=== PATIENT | female | born 1975 | race Two or more races ===

== ENCOUNTER 2025-03-09 08:04 | Emergency (ER) | payer MEDICAID, SELFPAY ==
[2025-03-09 08:05] VITALS: BMI 38.5
[2025-03-09 08:11] VITALS: BP 155/80; PULSE 67; RESP 18; TEMP 36.8; O2SAT 96
--- NOTE | 2025-03-09 08:17 | PD.EDRME ---
Rapid Medical Screening Exam [facility] Arrival date/time: 03/09/25 08:04 CC: Left upper and left lower abdominal pain HPI abrupt onset 1 hour ago no medications taken no prior history of similar events denies painful urination bloody urination or diarrhea. Mild nausea without vomiting. Patient has no PCP Chief Complaint: Abdominal Pain Time Seen by Provider: 03/09/25 08:13 Vital signs: Vital Signs Temperature 98.2 F 03/09/25 08:11 Pulse Rate 67 03/09/25 08:11 Respiratory Rate 18 03/09/25 08:11 Blood Pressure 155/80 H 03/09/25 08:11 Pulse Oximetry (%) 96 03/09/25 08:11 Oxygen Delivery Method Room Air 03/09/25 08:11
--- NOTE | 2025-03-09 08:52 | PD.EDADULT ---
ED General RME/HPI General Chief complaint: Abdominal Pain Stated complaint: LEFT ABD PAIN RADIATING TO BACK WITH NAUSEA Time Seen by Provider: 03/09/25 08:13 Arrival date/time: 03/09/25 08:04 RME / HPI RME / HPI narrative: 03/09/25 08:04 CC: Left upper and left lower abdominal pain HPI abrupt onset 1 hour ago no medications taken no prior history of similar events denies painful urination bloody urination or diarrhea. Mild nausea without vomiting. Patient has no PCP 49-year-old female with no relevant past medical history comes into the ED with chief complaints of abdominal pain greater on the left side than on the right side. Patient also says that she has been having some nausea, but has not had any vomiting. Patient states that around a week ago she has been having some nausea when she eats and has been taking Tums which relieved her nausea. She mentioned that she also has left lower back pain. Patient also mentioned that she has been having some diarrhea for the past few days around 5, but denies having any flank pain, fevers, shortness of breath, chest pain, blood in the urine, or blood in the stools. She did mention that today she did have some chills. Otherwise no other complaints at this time. Patient has never had a colonoscopy. Denies any smoking, drugs, social alcohol Related Data Previous Rx's ?Medication ?Instructions ?Recorded ipratropium bromide 21 mcg (0.03 2 spray intranasal BID #30 mL 02/25/19 %) nasal spray loratadine 10 mg tablet (Allergy 10 mg PO QDAY allergy symptoms #30 02/25/19 Relief (loratadine)) tabs ketorolac 10 mg tablet 10 mg PO Q8H PRN pain #9 tabs 03/09/25 Allergies Allergy/AdvReac Type Severity Reaction Status Date / Time No Known Allergies Allergy Verified 03/09/25 08:05 Review of Systems Review of Systems Systems Reviewed: All systems reviewed, normal except as documented Past Medical History Past Medical History Comments PMH COMMENT: PMH: None Allergies: NKDA Meds: None Social Hx: Denies any smoking or drugs, social drinking ED Exam Narrative Physical exam: Gen: A&O X 3, NAD HEENT: NCAT, EOMI, Pupils reactive [place], not icteric. External ears normal. No rhinorrhea. Moist mucous membranes. Neck: Supple, full range of motion, no observable masses, No meningeal sign. Lungs: No Respiratory distress, clear bilateral. CV: RRR, no murmurs. Abdomen: Soft, nondistended, mildly tender to palpation on L side, No rebound tenderness. No flank pain. MSK: No joint swelling, no redness, peripheral pulses presents, lumbar with no edema. Skin: No rashes, petechiae, lesions. Neuro: No focal neurological deficits appreciated, sensory and motor intact. Psych: Cooperative, appropriate mood and effect. Course Quality Measures none Orders Category Date Time Status CT abdomen pelvis wo con Stat Exams 03/09/25 10:21 Completed EKG (ED Only) Stat Exams 03/09/25 08:16 Stop Req B-Type Natriuretic Peptide Stat Lab 03/09/25 09:30 Completed C-Reactive Protein Stat Lab 03/09/25 09:30 Completed CBC Stat Lab 03/09/25 09:30 Completed Comprehensive Metabolic Panel Stat Lab 03/09/25 09:30 Completed Drug Screen,Urine Stat Lab 03/09/25 08:43 Completed HCG Qualitative,Urine Stat Lab 03/09/25 08:43 Completed Lipase Stat Lab 03/09/25 09:30 Completed Magnesium Stat Lab 03/09/25 09:30 Completed Urinalysis Stat Lab 03/09/25 08:43 Completed Acetaminophen Tab [Tylenol Tab] Med 03/09/25 09:22 Discontinued 650 mg PO X1 ONE Vital Signs Vital signs: Vital Signs Temperature 98.2 F 03/09/25 08:11 Pulse Rate 67 03/09/25 08:11 Respiratory Rate 18 03/09/25 08:11 Blood Pressure 155/80 H 03/09/25 08:11 Pulse Oximetry (%) 96 03/09/25 08:11 Oxygen Delivery Method Room Air 03/09/25 08:11 Discharge Plan Plan Patient Disposition: HOME (Self Care) Prescriptions/Referrals Prescriptions/Med Rec: New ketorolac 10 mg tablet 10 mg PO Q8H PRN (Reason: pain) Qty: 9 0RF Rx Instructions: maximum total duration of 5 days from all oral, intranasal, or parenteral formulations No Action loratadine [Allergy Relief (loratadine)] 10 mg tablet 10 mg PO QDAY Qty: 30 3RF ipratropium bromide 0.03 % spray,non-aerosol 2 spray INTRANASAL BID Qty: 30 0RF Rx Instructions: administer into each nostril; wait 30 seconds between sprays Referrals: No Primary/Family,Physician [Primary Care Provider] - In 1 week Problem List Clinical Impression: Calculus of kidney Patient/Caregiver Discharge Instructions Other Activity Instructions:: Follow-up primary care physician within 2 days Can take Tylenol every 6 hours as needed for pain for the next 3 days Prescribed ketorolac 10 mg every 8 hours as needed for pain for the next 2 or 3 days. Recommend oral hydration with at least 2 L of fluids Recommend your primary care physician to have outpatient gallbladder ultrasound to better assess gallbladder as there is seem to be some gallbladder classifications Come back to the ER if symptoms persist or worsen or if you develop any fevers, chills, or vomiting Education Materials: Anatomy of the Female Urinary Tract, Exercise to Help Your Kidneys, ED Kidney Stone Undescended No ... Print Language: Citizen Of [place] Stand Alone Forms: Judy Award Info., Patient Portal Info Letter MDM Narrative MDM hospital course: Patient was seen and evaluated upon arrival by myself. Diagnostic labs and imaging were ordered. Patient's UA was positive for RBCs and blood therefore will order abdomen/pelvis CT to rule out kidney stones. Otherwise all her labs look unremarkable. Abdomen/pelvis CT that show a 2 mm distal left ureteral calculus with minimal left hydronephrosis and an abnormal gallbladder wall calcification, which will recommend to follow-up outpatient. At this time patient is stable enough to be discharged home. Will discharge patient with Tylenol and ketorolac as needed for pain. Patient agrees with plan. Case disclosed with Attending Dr. Al Finley PGY2 Disclaimer: Even though this this note was dictated by speech recognition and even though it was carefully revised there may still be minor errors in lunchroom mother due to voice recognition software. Medication Administration(s) Medication Administration History Discontinued Medications Acetaminophen (Acetaminophen 325 Mg Tablet) 650 mg PO X1 ONE Stop: 03/09/25 09:23 Last Admin: 03/09/25 09:36 Dose: 650 mg Documented By: TRINITY
[2025-03-09 08:57] LABS: Collection Type, Urine Clean Catch
[2025-03-09 09:09] LABS: Bacteria,Urine Rare; Bilirubin,Urine Negative (Negative); Blood,Urine 3+ (Negative); Clarity,Urine Clear (Clear/Hazy); Color,Urine Yellow (Lt Yel-Yel); Glucose, Urine Negative (Negative); Ketones,Urine Negative (Negative); Leukocyte Esterase,Urine Positive (Negative); Nitrite,Urine Negative (Negative); PH,Urine 6.0 (5.0-7.0); Protein,Urine Negative (Neg - Trace); RBC,Urine 269 /hpf (0-3); Specific Gravity,Urine 1.020 (1.001-1.035); Squamous Epithelial Cell,Urine 4 /hpf (0-5); Urobilinogen,Urine Negative mg/dL (0.0-1.0); WBC,Urine 8 /hpf (0-5)
[2025-03-09 09:17] LABS: HCG Qualitative,Urine Negative
[2025-03-09 09:20] LABS: Amphetamine/Methamp Scrn,U Negative (Negative); Barbiturate Screen,Urine Negative (Negative); Benzodiazepines Screen,Urine Negative (Negative); Benzoylecgonine Screen, Ur Negative (Negative); Fentanyl Screen,Urine Negative (Negative); Opiate Screen,Urine Negative (Negative); THC Screen,Urine Negative (Negative)
[2025-03-09] MEDS: ACETAMINOPHEN 325 MG TABLET 650 MG PO (09:36)
[2025-03-09 09:43] LABS: Basophils # (Auto) 0.1 Thou/mm3 (0.0-0.2); Basophils % (Auto) 1 % (0-2.5); Eosinophils # (Auto) 0.2 Thou/mm3 (0.0-0.5); Eosinophils % (Auto) 3 % (0-10); Hematocrit 38.4 % (36.0-46.0); Hemoglobin 12.9 g/dL (12.0-16.0); Immature Granulocytes Auto 0.02 Thou/mm3 (0.00-0.00); Lymphocytes # (Auto) 1.5 Thou/mm3 (1.0-4.8); Lymphocytes % (Auto) 29 % (10-50); Mean Corpuscular HGB Conc 33.6 g/dl (31.0-37.0); Mean Corpuscular Hemoglobin 29.4 pg (25.0-35.0); Mean Corpuscular Volume 88 fL (80-100); Monocytes # (Auto) 0.4 Thou/mm3 (0.0-0.8); Monocytes % (Auto) 8 % (0-12); Neutrophils # (Auto) 3.1 Thou/mm3 (1.8-7.7); Neutrophils % (Auto) 59 % (37-80); Nucleated Red Blood Cell # 0.00 Thou/mm3 (0.00-0.00); Nucleated Red Blood Cell % 0 /100 WBC (0); Platelet Count 194 Thou/mm3 (140-440); RDW Standard Deviation 41.8 fL (36.4-46.3); Red Blood Count 4.39 Miln/mm3 (4.00-5.20); White Blood Count 5.2 Thou/mm3 (3.6-11.0)
[2025-03-09 10:00] LABS: B-Type Natriuretic Peptide < 20 pg/mL (0-100)
[2025-03-09 10:02] LABS: Alanine Aminotransferase 25 U/L (10-49); Albumin, Serum 4.2 gm/dL (3.5-5.0); Albumin/Globulin Ratio 1.8 (1.2-2.2); Alkaline Phosphatase 74 U/L (46-116); Anion Gap 8 (7-16); Aspartate Amino Transferase 26 U/L (0-34); BUN/Creatinine Ratio 11 Ratio (12-20); Bilirubin,Total 0.5 mg/dL (0.3-1.2); Blood Urea Nitrogen 10 mg/dL (9-23); Calcium 9.7 mg/dL (8.3-10.6); Calcium (Corrected) 9.7 mg/dL (8.5-10.1); Carbon Dioxide 26.1 mMol/L (20.0-31.0); Chloride 107 mMol/L (98-107); Creatinine (Component) 0.9 mg/dL (0.6-1.3); Estimated Creatinine Clearance 77.6 mL/min (>60); Globulin 2.4 gm/dL (2.3-3.5); Glucose 118 mg/dL (74-106); Lipase 32 U/L (12-53); Magnesium 1.9 mg/dL (1.6-2.6); Osmolality,Calculated 281 (275-295); Potassium 3.6 mMol/L (3.4-5.1); Sodium 141 mMol/L (136-145); Total Protein 6.6 gm/dL (5.7-8.2); eGFR > 60 See Note
[2025-03-09 10:08] VITALS: BP 119/77; PULSE 59; RESP 17; TEMP 36.9; O2SAT 96
[2025-03-09 10:15] LABS: C-Reactive Protein 0.4 mg/dL (0.0-0.9)
--- NOTE | 2025-03-09 10:21 | XR_ITS ---
Examination: CT abdomen and pelvis without contrast. Coronal 3-D reconstructions. Sagittal 2-D reconstructions. Date and time of exam:March 09, 2025 1043 hours INDICATIONS: Left flank pain and nausea today CTDI: vol (mGy): 12 DLP: (mGycm): 1 Technique: Axial images of the abdomen have been obtained, 3 mm slice thickness Intravenous contrast material has not been administered. Low dose protocols were performed. One or more of the following dose reduction techniques were used; automated exposure control, adjustment of the mA and/or KV according to patient size, use of iterative reconstruction technique. Findings: 4 mm calcified granuloma right lower lobe Fatty infiltration throughout the liver Abnormal gallbladder, markedly thickened gallbladder wall with calcification in the wall Spleen is not enlarged No pancreatic or adrenal mass No renal calculi Minimal left hydronephrosis with 2 mm distal left ureteral calculus No bowel obstruction Normal appendix No bladder mass or bladder calculi No pelvic mass Moderate osteopenia IMPRESSION: Abnormal gallbladder markedly thickened gallbladder wall calcifications in the wall, recommend hepatobiliary sonography follow-up Minimal left hydronephrosis secondary to 2 mm distal left ureteral calculus
== END 2025-03-09 12:44 | disposition home or self-care (01) ==
PROVIDERS: Registered Nurse General Practice; Emergency Provider Family Medicine
DX: N20.0 Calculus of kidney (principal)
CPT/HCPCS: 36415; 74176; 80053; 80307; 81001; 81025; 83690; 83735; 83880; 85025; 86140; 99283; A9270

== ENCOUNTER → 2025-05-21 | Outpatient (CLI) | payer MEDICAID, SELFPAY ==
--- NOTE | 2025-05-21 09:30 | XR_ITS ---
Examination: Screening digital mammography, bilateral Computer aided detection 3-D breast Tomosynthesis, bilateral Date and time of exam: May 21, 2025, 0943 hours, compared to mammograms dating to July 05, 2014 Indication: Screening Technique: Nonmagnified MLO, CC views of the breasts to been obtained, reconstructed from 3-D Tomosynthesis images. R2 computer aided detection program utilized for evaluation of suspicious masses and/or abnormal calcifications. 3-D Tomosynthesis images obtained. Findings: Scattered areas of fibroglandular density. Benign calcifications. No interval suspicious masses Impression: BI-RADS category II: Benign Findings. Recommend 1 year follow-up mammogram.
== END | disposition home or self-care (01) ==
PROVIDERS: PCP Internal Medicine; Referring Provider Internal Medicine; Visit Provider Internal Medicine
DX: Z12.31 Encounter for screening mammogram for malignant neoplasm of breast (principal); R92.323 Mammographic fibroglandular density, bilateral breasts; R92.1 Mammographic calcification found on diagnostic imaging of breast
CPT/HCPCS: 77063; 77067